=== PATIENT | male | born 1970 | race Caucasian/White ===

== ENCOUNTER 2018-09-25 11:59 | Emergency (ER) | payer BC ==
--- OUTSIDE RECORDS SUMMARY | 2018-09-25 12:17 | XMS REPORT | Continuity of Care Document ---
:1970 External Reference #:[id number] Author Name Pb Pal MD Address [facility] [place] [address] Care Team Providers Name Role Phone Pb Pal MD Care Team Information Neurophysiological Technician Unavailable Payers Type Date Identification Numbers Payment Provider Subscriber Policy Number: [id number] Of ASIF Vitaliy Sauceda II PayID: [id number] [address] [address] [place]il[place]USTÍN gupta [phone] Advance Directives Description No Information Available Problems Date Description Provider Status Onset: 12/25/2013 Ulcerative colitis Pb Pal MD Active Onset: 01/31/2015 Gastroesophageal reflux disease BHARATHI Kelly Active Onset: 01/31/2015 Essential hypertension BHARATHI Kelly Active Onset: 01/25/2017 Chronic ulcerative proctitis Pb Pal MD Active Family History Date Family Member(s) Problem(s) Comments Father Heart Disease Father Prostate Cancer Social History Type Date Description Comments Sex Unknown Tobacco Use Start: Unknown Patient has never smoked Smoking Status Reviewed: 07/13/18 Patient has never smoked Allergies, Adverse Reactions, Alerts Date Description Reaction Status Severity Comments 12/25/2013 Penicillin Active 12/25/2013 Contrast Dye Active 12/25/2013 [place] Active Medications Medication Date Status Form Strength Qnty SIG Indications Ordering Provider Methylphenidate 07/13/ Active Tablets 18mg 60tabs 1 tab by Pb Carroll HCL 2017 mouth tamela Pal MD Xeljanz 05/17/ Active Tablets 10mg 60tabs Take 1 Pb Carroll 2018 Tablet By Екатерина Pal Two MD Times A Day Pantoprazole 06/13/ Active Tablets DR 40mg 30tabs Take 1 Pb Carroll Sodium 2014 Tablet By Екатерина Pal MD Every Day Provigil 06/13/ Hx Tablets 200mg Daily Pb Carroll 2018 - Demarco 07/13/ 2017 Prednisone 02/24/ Hx Tablets 10mg QS 4 po q Shi 2017 - day x 7 L. 05/18/ d, 3 po [place] 2017 qday x7 , PA-C d, 2 po qd x 5d, 1 po q day x 7 d, then 1 po qother day x 6 days, then stop Prednisone 01/26/ Hx Tablets 10mg QS 3 po q Pb Carroll 2016 - day x 5 Demarco, 05/18/ days, 2016 then 2 po qday x 5 days, then 1 po q day x 5 days, then 1 po qother day x 6 days, then stop Uceris 06/16/ Hx Tablets ER 9mg 30tabs Take 1 Pb Carroll 2014 - 24HR Tablet By Demarco, 07/13/ Mouth 2017 Every Day Pantoprazole 03/17/ Hx Tablets DR 40mg 30tabs 1 by Pb Carroll Sodium 2014 - mouth Demarco, 01/24/ every day 2016 Uceris 03/17/ Hx Tablets ER 9mg 30tabs 1 by Pb Carroll 2014 - 24HR mouth Demarco, 01/24/ every day 2016 Lialda 01/09/ Hx Tablets DR 1.2gm 120tab Take 2 Pb Carroll 2014 - s Tablets Demarco, 01/24/ By Mouth 2016 Twice A Day Nexium 12/30/ Hx Capsules 40mg 30caps Take One Pb Carroll 2013 - DR Destiny Pal, 01/24/ By Mouth 2016 Every Day Lialda 12/25/ Hx Tablets DR 1.2gm 120tab 2 by Pb Carroll 2013 - s mouth Demarco, 01/24/ twice a 2016 day Proctofoam 12/25/ Hx Foam 1% 15gm apply Michelle Wynne 2013 - inside [place], 01/24/ rectum MEDICARE CONTACT SPECIALIST-C 2017 once a day x 14 days then every other day x 8 days Nexium 04/03/ Hx Capsules 40mg 30caps one po q Pb Carroll 2011 - DR keri Pal, 01/24/ 2016 Zoloft 00/ Hx Tablets 50mg Unknown 0000 - 2016 Lialda 00/ Hx Tablets DR 1.2gm Take 2 Unknown 0000 - Tablets 01/24/ By Mouth 2017 Every Day Atenolol / Hx Tablets 25mg Take 1 Unknown 0000 - Tablet By 01/24/ Mouth 2017 Every Day Lyrica / Hx Unknown 0000 - 2016 Immunizations Description No Information Available Vital Signs Date Vital Result Comment 05/04/2018 12:58pm Height 69 inches 5'9" Weight 173.00 lb BP Systolic 148 mmHg BP Diastolic 82 mmHg Heart Rate 88 /min BMI (Body Mass Index) 25.5 kg/m2 01/11/2018 3:17pm Height 71 inches 5'11" Weight 176.00 lb BP Systolic 130 mmHg BP Diastolic 91 mmHg Heart Rate 88 /min BMI (Body Mass Index) 24.5 kg/m2 05/18/2017 11:50am Height 71 inches 5'11" Weight 181.00 lb BP Systolic 122 mmHg BP Diastolic 70 mmHg Heart Rate 72 /min BMI (Body Mass Index) 25.2 kg/m2 01/25/2017 3:48pm Height 71 inches 5'11" Weight 178.00 lb BP Systolic 124 mmHg BP Diastolic 84 mmHg Heart Rate 84 /min BMI (Body Mass Index) 24.8 kg/m2 01/31/2015 12:49pm Height 71 inches 5'11" Weight 190.00 lb BP Systolic 118 mmHg BP Diastolic 62 mmHg Heart Rate 78 /min BMI (Body Mass Index) 26.5 kg/m2 12/25/2013 3:04pm Height 71 inches 5'11" Weight 181.00 lb BP Systolic 100 mmHg BP Diastolic 80 mmHg Heart Rate 70 /min BMI (Body Mass Index) 25.2 kg/m2 Results Test Date Facility Test Result H/L Range Note CBC W/Auto 05/17/2018 [facility] Blood 7.9 3/UL 4.8-10.8 Differential [address] Count Ser (!) [place] [address] Auto CNT [phone] RBC Red Blood Count 5.35 X106/UL 4.20-6.20 Hemoglobin Blood 14.6 g/dL 12.0-18.0 Hematocrit 48.0 % 35-52 MCV (Corpuscular Volume) 89.8 FL 79-97 MCH (Corpuscular Hemoglobin) 27.3 pg 27-31 MCHC (Corpuscular Hemog Conc) 30.4 g/dL Low 32.0-36.0 RDW 13.4 % 10.5-15.0 Platelet Count Blood Auto CNT 321 X103/UL 150-450 MPV 7.0 FL Low 7.4-10.4 Lymph% 20.5 % 20.0-45.0 [place]% 6.8 % 1.0-9.0 Neutrophil % 72.7 % 38.0-83.0 Absolute Lymphocytes 1.6 X103/UL 1.0-4.8 Absolute Monocytes 0.5 X103/UL 0.0-0.8 Absolute Neutrophils 5.7 X103/UL 1.5-7.7 Liver 05/17/2018 [facility] Albumin 4.6 g/dL 3.5-5.[address] Serum/Plasma(!) Panel(!) [place] [address] [phone] Alkaline Phosphatase(!) 73 U/L 39-117 Bilirubin Direct Mass/Vol(!) 0.2 mg/dL 0.0-0.6 Bilirubin Total Mass/Vol 0.7 mg/dL 0.2-1.3 Ast - Sgot 23 U/L 5-34 Alt - SGPT 33 U/L 10-40 Total Protein 6.9 g/dL 6.2-8.1 Hepatitis B Emre AB Titer 05/17/2018 [facility] Hepatitis B Surface AB Immune Immune 1 Hep B Surf AB Level > 1000.00 mIU/mL >12 Laboratory test 05/17/2018 [facility] Hepatitis B Surface Nonreactive Nonreactive 2 finding Ag Hepatitis B Core AB Total Negative Negative 3 Hepatitis C Antibody Nonreactive Nonreactive 4 Laboratory test finding 05/18/2017 [facility] CMV By PCR Undetected IU/mL N Undetected 5, 6 Hepatitis B Surface Ag Nonreactive N Nonreactive 7 CBC W/Auto 05/18/2017 [facility] 5.8 3/UL 4.8- 10.8 Differential(!) [address] [place] [address] Count Ser [phone] Auto CNT RBC Red Blood Count 4.84 X106/UL 4.20-6.20 Hemoglobin Blood 14.0 g/dL 12.0-18.0 Hematocrit 44.7 % 35-52 MCV (Corpuscular Volume) 92.2 FL 79-97 MCH (Corpuscular Hemoglobin) 28.9 pg 27-31 MCHC (Corpuscular Hemog Conc) 31.4 g/dL Low 32.0-36.0 RDW 15.8 % High 10.5-15.0 Platelet Count Blood Auto CNT 268 X103/UL 150-450 MPV 7.2 FL Low 7.4-10.4 Lymph% 31.6 % 20.0-45.0 Clarion% 8.9 % 1.0-9.0 Neutrophil % 59.5 % 38.0-83.0 Absolute Lymphocytes 1.8 X103/UL 1.0-4.8 Absolute Monocytes 0.5 X103/UL 0.0-0.8 Absolute Neutrophils 3.5 X103/UL 1.5-7.7 CMP(!) 05/18/2017 [facility] Sodium(!) 137 mEq/L 134- 149 [address] [place] [address] [phone] Potassium(!) 4.3 mEq/L 3.6-5.5 Chloride Serum/Plasma(!) 104 mEq/L 94-112 Carbon Dioxide Ser/Plasm(!) 29 mEq/L 21-33 BUN - Urea Nitrogen(!) 10 mg/dL 6-24 Calcium Ser/Plasma Mass/Vol(!) 10.1 mg/dL 8.6-10.2 Creatinine Serum Mass/Vol(!) 0.9 mg/dL 0.5-1.4 Glucose Serum(!) 99 mg/dL 70-105 Uric Acid Ser/Plas Mass/Vol(!) 4.1 mg/dL 2.6-7.2 BUN/Creatinine Ratio(!) 11.1 RATIO 8.0-36 Albumin Serum/Plasma(!) 4.4 g/dL 3.5-5.2 Alkaline Phosphatase(!) 61 U/L 39-117 Bilirubin Total Mass/Vol 0.7 mg/dL 0.2-1.3 Ast - Sgot 22 U/L 5-34 Alt - SGPT 31 U/L 10-40 Protein Total 6.6 g/dL 6.2-8.1 Laboratory test finding 03/17/2015 [facility] Surgical Interface SEE RESULT BELOW 8 Order Laboratory test finding 03/17/2015 [facility] Clotest SEE RESULT BELOW 9 1 [id number] 2 [id number] 3 Test Performed by: [facility] DN2K [facility] [address] [place] [address] 4 [id number] 5 [id number] 6 Result in log IU/mL is Undetected. ADDITIONAL INFORMATION The quantification range of this assay is 137 to 9,100,000 IU/mL (2.14 log to 6.96 log IU/mL) with a limit of detection at 91 IU/mL (1.96 log IU/mL). Testing was performed by the TABITHA AmpliPrep/TABITHA TaqMan CMV Test ([employer] Test Performed by: [facility] - [address] [address] 7 [id number] SEE RESULT BELOW Name: VITALIY SAUCEDA II : [address]: Pb Pal MD Acct: [id number] Unit: [id number] AGE: 44 Location: ENDO Re03/17/15 SEX: M Status: REG REF SPEC: [id number] VANIA: 03/17/15- SUBM DR: Pb Pal MD REQ: [id number] RECD: 03/17/15-1212 STATUS: JADEN BROOKS DR: Ramu Mcgarry MD _ ORDERED: LEVEL IV FINAL DIAGNOSIS Stomach, biopsy: -- Hyperplastic fundic gland polyp. CLINICAL HISTORY No additional information provided POST-OPERATIVE DIAGNOSIS Esophagus - at 41 cm. small hiatal hernia; stomach - polyp, biopsied; duodenum - normal GROSS DESCRIPTION The specimen is received in formalin labeled, Biopsy Gastric Polyp, and consists of a 0.4 x 0.4 x 0.2 cm jensen-pink irregular soft tissue fragment, which is submitted entirely in one cassette. Signed (signature on file) Paul Bueno MD 1150 END OF REPORT * ML=Testing performed at Main Lab DEPARTMENT OF PATHOLOGY, [address] [place] [address] Paul Bueno M.D. Director [facility] # [id number] SEE RESULT BELOW Name: VITALIY SAUCEDA II : [address]: Pb Pal MD Acct: [id number] Unit: [id number] AGE: 44 Location: ENDO Re03/17/15 SEX: M Status: REG REF SPEC: [id number] VANIA: 03/17/15- SUBM DR: Pb Pal MD REQ: [id number] RECD: 03/17/15-2 STATUS: JADEN BROOKS DR: Ramu Mcgarry MD _ ORDERED: LEVEL IV FINAL DIAGNOSIS Stomach, biopsy: -- Hyperplastic fundic gland polyp. CLINICAL HISTORY No additional information provided POST-OPERATIVE DIAGNOSIS Esophagus - at 41 cm. small hiatal hernia; stomach - polyp, biopsied; duodenum - normal GROSS DESCRIPTION The specimen is received in formalin labeled, Biopsy Gastric Polyp, and consists of a 0.4 x 0.4 x 0.2 cm jensen-pink irregular soft tissue fragment, which is submitted entirely in one cassette. Signed (signature on file) Paul Bueno MD 1150 END OF REPORT * ML=Testing performed at Main Lab DEPARTMENT OF PATHOLOGY, [address] [place] [address] Paul Bueno M.D. Director [facility] # [id number] SEE RESULT BELOW Name: VITALIY SAUCEDA II : [address]: Pb Pal MD Acct: [id number] Unit: [id number] AGE: 44 Location: ENDO Re03/17/15 SEX: M Status: REG REF SPEC: [id number] VANIA: 03/17/15- SUBM DR: Pb Pal MD REQ: [id number] RECD: 03/17/15 STATUS: JADEN BROOKS DR: Ramu Mcgarry MD _ ORDERED: LEVEL IV FINAL DIAGNOSIS Stomach, biopsy: -- Hyperplastic fundic gland polyp. CLINICAL HISTORY No additional information provided POST-OPERATIVE DIAGNOSIS Esophagus - at 41 cm. small hiatal hernia; stomach - polyp, biopsied; duodenum - normal GROSS DESCRIPTION The specimen is received in formalin labeled, Biopsy Gastric Polyp, and consists of a 0.4 x 0.4 x 0.2 cm jensen-pink irregular soft tissue fragment, which is submitted entirely in one cassette. Signed (signature on file) Paul Bueno MD 1150 END OF REPORT * ML=Testing performed at Main Lab DEPARTMENT OF PATHOLOGY, [address] [place] [address] Paul Bueno M.D. Director [facility] # [id number] SEE RESULT BELOW Name: VITALIY SAUCEDA II : [address]: Pb Pal MD Acct: [id number] Unit: [id number] AGE: 44 Location: ENDO Re03/17/15 SEX: M Status: REG REF SPEC: [id number] VANIA: 03/17/15- [facility] DR: Pb Pal MD REQ: [id number] RECD: 03/17/15-1212 STATUS: JADEN BROOKS DR: Ramu Mcgarry MD _ ORDERED: LEVEL IV FINAL DIAGNOSIS Stomach, biopsy: -- Hyperplastic fundic gland polyp. CLINICAL HISTORY No additional information provided POST-OPERATIVE DIAGNOSIS Esophagus - at 41 cm. small hiatal hernia; stomach - polyp, biopsied; duodenum - normal GROSS DESCRIPTION The specimen is received in formalin labeled, Biopsy Gastric Polyp, and consists of a 0.4 x 0.4 x 0.2 cm jensen-pink irregular soft tissue fragment, which is submitted entirely in one cassette. Signed (signature on file) Paul Bueno MD 1150 END OF REPORT * ML=Testing performed at Main Lab DEPARTMENT OF PATHOLOGY, [address] [place] [address] Paul Bueno M.D. Director [facility] # [id number] SEE RESULT BELOW Name: VITALIY SAUCEDA II : [address]: Pb Pla MD Acct: [id number] Unit: [id number] AGE: 44 Location: ENDO Re03/17/15 SEX: M Status: REG REF SPEC: [id number] VANIA: 03/17/15- SUBM DR: Pb Pal MD REQ: [id number] RECD: 03/17/15-1212 STATUS: JADEN BROOKS DR: Ramu Mcgarry MD _ ORDERED: LEVEL IV FINAL DIAGNOSIS Stomach, biopsy: -- Hyperplastic fundic gland polyp. CLINICAL HISTORY No additional information provided POST-OPERATIVE DIAGNOSIS Esophagus - at 41 cm. small hiatal hernia; stomach - polyp, biopsied; duodenum - normal GROSS DESCRIPTION The specimen is received in formalin labeled, Biopsy Gastric Polyp, and consists of a 0.4 x 0.4 x 0.2 cm jensen-pink irregular soft tissue fragment, which is submitted entirely in one cassette. Signed (signature on file) Paul Bueno MD 1150 END OF REPORT * ML=Testing performed at Main Lab DEPARTMENT OF PATHOLOGY, [address] [place] [address] Paul Bueno M.D. Director [facility] # [id number] SEE RESULT BELOW Name: VITALIY SAUCEDA II : [address]: Pb Pal MD Acct: [id number] Unit: [id number] AGE: 44 Location: ENDO Re03/17/15 SEX: M Status: REG REF SPEC: [id number] VANIA: 03/17/15- SUBM DR: Pb Pal MD REQ: [id number] RECD: 03/17/15-1212 STATUS: JADEN BROOKS DR: Ramu Mcgarry MD _ ORDERED: LEVEL IV FINAL DIAGNOSIS Stomach, biopsy: -- Hyperplastic fundic gland polyp. CLINICAL HISTORY No additional information provided POST-OPERATIVE DIAGNOSIS Esophagus - at 41 cm. small hiatal hernia; stomach - polyp, biopsied; duodenum - normal GROSS DESCRIPTION The specimen is received in formalin labeled, Biopsy Gastric Polyp, and consists of a 0.4 x 0.4 x 0.2 cm jensen-pink irregular soft tissue fragment, which is submitted entirely in one cassette. Signed (signature on file) Paul Bueno MD 1150 END OF REPORT * ML=Testing performed at Main Lab DEPARTMENT OF PATHOLOGY, [address] [place] [address] Paul Bueno M.D. Director [facility] # [id number] SEE RESULT BELOW Name: VITALIY SAUCEDA II : [address]: Pb Pal MD Acct: [id number] Unit: [id number] AGE: 44 Location: ENDO Re03/17/15 SEX: M Status: REG REF SPEC: [id number] VANIA: 03/17/15- SUBM DR: Pb Pal MD REQ: [id number] RECD: 03/17/15-2 STATUS: JADEN BROOKS DR: Ramu Mcgarry MD _ ORDERED: LEVEL IV FINAL DIAGNOSIS Stomach, biopsy: -- Hyperplastic fundic gland polyp. CLINICAL HISTORY No additional information provided POST-OPERATIVE DIAGNOSIS Esophagus - at 41 cm. small hiatal hernia; stomach - polyp, biopsied; duodenum - normal GROSS DESCRIPTION The specimen is received in formalin labeled, Biopsy Gastric Polyp, and consists of a 0.4 x 0.4 x 0.2 cm jensen-pink irregular soft tissue fragment, which is submitted entirely in one cassette. Signed (signature on file) Paul Bueno MD 1150 END OF REPORT * ML=Testing performed at Main Lab DEPARTMENT OF PATHOLOGY, [address] [place] [address] Paul Bueno M.D. Director [facility] # [id number] SEE RESULT BELOW Name: VITALIY SAUCEDA II : [address]: Pb Pal MD Acct: [id number] Unit: [id number] AGE: 44 Location: ENDO Re03/17/15 SEX: M Status: REG REF SPEC: [id number] VANIA: 03/17/15- SUBM DR: Pb Pal MD REQ: [id number] RECD: 03/17/15 STATUS: JADEN BROOKS DR: Ramu Mcgarry MD _ ORDERED: LEVEL IV FINAL DIAGNOSIS Stomach, biopsy: -- Hyperplastic fundic gland polyp. CLINICAL HISTORY No additional information provided POST-OPERATIVE DIAGNOSIS Esophagus - at 41 cm. small hiatal hernia; stomach - polyp, biopsied; duodenum - normal GROSS DESCRIPTION The specimen is received in formalin labeled, Biopsy Gastric Polyp, and consists of a 0.4 x 0.4 x 0.2 cm jensen-pink irregular soft tissue fragment, which is submitted entirely in one cassette. Signed (signature on file) Paul Bueno MD 1150 END OF REPORT * ML=Testing performed at Main Lab DEPARTMENT OF PATHOLOGY, [address] [place] [address] Paul Bueno M.D. Director [facility] # [id number] SEE RESULT BELOW Name: VITALIY SAUCEDA II : [address]: Pb Pal MD Acct: [id number] Unit: [id number] AGE: 44 Location: ENDO Re03/17/15 SEX: M Status: REG REF SPEC: [id number] VANIA: 03/17/15- SUBM DR: Pb Pal MD REQ: [id number] RECD: 03/17/15-1212 STATUS: JADEN BROOKS DR: Ramu Mcgarry MD _ ORDERED: LEVEL IV FINAL DIAGNOSIS Stomach, biopsy: -- Hyperplastic fundic gland polyp. CLINICAL HISTORY No additional information provided POST-OPERATIVE DIAGNOSIS Esophagus - at 41 cm. small hiatal hernia; stomach - polyp, biopsied; duodenum - normal GROSS DESCRIPTION The specimen is received in formalin labeled, Biopsy Gastric Polyp, and consists of a 0.4 x 0.4 x 0.2 cm jensen-pink irregular soft tissue fragment, which is submitted entirely in one cassette. Signed (signature on file) Paul Bueno MD 1150 END OF REPORT * ML=Testing performed at Main Lab DEPARTMENT OF PATHOLOGY, [address] [place] [address] Paul Bueno M.D. Director [facility] # [id number] SEE RESULT BELOW Name: VITALIY SAUCEDA II : [address]: Pb Pal MD Acct: [id number] Unit: [id number] AGE: 44 Location: ENDO Re03/17/15 SEX: M Status: REG REF SPEC: [id number] VANIA: 03/17/15- SUBM DR: Pb Pal MD REQ: [id number] RECD: 03/17/15-1212 STATUS: JADEN BROOKS DR: Ramu Mcgarry MD _ ORDERED: LEVEL IV FINAL DIAGNOSIS Stomach, biopsy: -- Hyperplastic fundic gland polyp. CLINICAL HISTORY No additional information provided POST-OPERATIVE DIAGNOSIS Esophagus - at 41 cm. small hiatal hernia; stomach - polyp, biopsied; duodenum - normal GROSS DESCRIPTION The specimen is received in formalin labeled, Biopsy Gastric Polyp, and consists of a 0.4 x 0.4 x 0.2 cm jensen-pink irregular soft tissue fragment, which is submitted entirely in one cassette. Signed (signature on file) Paul Bueno MD 1150 END OF REPORT * ML=Testing performed at Main Lab DEPARTMENT OF PATHOLOGY, [address] [place] [address] Paul Bueno M.D. Director [facility] # [id number] SEE RESULT BELOW Name: VITALIY SAUCEDA II : [address]: Pb Pal MD Acct: [id number] Unit: [id number] AGE: 44 Location: ENDO Re03/17/15 SEX: M Status: REG REF SPEC: [id number] VANIA: 03/17/15- SUBM DR: Pb Pal MD REQ: [id number] RECD: 03/17/15-1212 STATUS: JADEN BROOKS DR: Ramu Mcgarry MD _ ORDERED: LEVEL IV FINAL DIAGNOSIS Stomach, biopsy: -- Hyperplastic fundic gland polyp. CLINICAL HISTORY No additional information provided POST-OPERATIVE DIAGNOSIS Esophagus - at 41 cm. small hiatal hernia; stomach - polyp, biopsied; duodenum - normal GROSS DESCRIPTION The specimen is received in formalin labeled, Biopsy Gastric Polyp, and consists of a 0.4 x 0.4 x 0.2 cm jensen-pink irregular soft tissue fragment, which is submitted entirely in one cassette. Signed (signature on file) Paul Bueno MD 1150 END OF REPORT * ML=Testing performed at Main Lab DEPARTMENT OF PATHOLOGY, [address] [place] [address] Paul Bueno M.D. Director [facility] # [id number] SEE RESULT BELOW Name: VITALIY SAUCEDA II : [address]: Pb Pal MD Acct: [id number] Unit: [id number] AGE: 44 Location: ENDO Re03/17/15 SEX: M Status: REG REF SPEC: [id number] VANIA: 03/17/15-1133 [facility] DR: Pb Pal MD REQ: [id number] RECD: 03/17/15 STATUS: NIDIA BROOKS DR: Ramu Mcgarry MD _ SOURCE: GAS ANTRUM SPDESC: ORDERED: Clotest Procedure Result Verified Site Clotest Final 03/18/15- 801 ML Clotest Negative * ML - MAIN LAB ([facility]) . END OF REPORT * ML=Testing performed at Main Lab DEPARTMENT OF PATHOLOGY, [address] [place] [address] Paul Bueno M.D. Director [facility] # [id number] SEE RESULT BELOW Name: VITALIY SAUCEDA II : [address]: Pb Pal MD Acct: [id number] Unit: [id number] AGE: 44 Location: ENDO Re03/17/15 SEX: M Status: REG REF SPEC: [id number] VANIA: 03/17/15-1134 [facility] DR: Pb Pal MD REQ: [id number] RECD: 03/17/15-1221 STATUS: COMP TODD DR: Ramu Mcgarry MD _ SOURCE: GAS ANTRUM SPDESC: ORDERED: Clotest Procedure Result Verified Site Clotest Final 03/18/15- 08 ML Clotest Negative * ML - MAIN LAB ([facility]) . END OF REPORT * ML=Testing performed at Main Lab DEPARTMENT OF PATHOLOGY, [address] [place] [address] Paul Bueno M.D. Director [facility] # [id number] SEE RESULT BELOW Name: VITALIY SAUCEDA II : [address]: Pb Pal MD Acct: [id number] Unit: [id number] AGE: 44 Location: ENDO Re03/17/15 SEX: M Status: REG REF SPEC: [id number] VANIA: 03/17/15-1134 [facility] DR: Pb Pal MD REQ: [id number] RECD: 03/17/15-1222 STATUS: COMP OTHR DR: Ramu Mcgarry MD _ SOURCE: GAS ANTRUM SPDESC: ORDERED: Clotest Procedure Result Verified Site Clotest Final 03/18/15- 801 ML Clotest Negative * ML - [facility] ([facility]) . END OF REPORT * ML=Testing performed at Main Lab DEPARTMENT OF PATHOLOGY, [address] [place] [address] Paul Bueno M.D. Director [facility] # [id number] SEE RESULT BELOW Name: VITALIY SAUCEDA II : [address]: Pb Pal MD Acct: [id number] Unit: [id number] AGE: 44 Location: ENDO Re03/17/15 SEX: M Status: REG REF SPEC: [id number] VANIA: 03/17/15-113 [facility] DR: Pb Pal MD REQ: [id number] RECD: 03/17/15-1221 STATUS: NIDIA BROOKS DR: Ramu Mcgarry MD _ SOURCE: GAS ANTRUM SPDES: ORDERED: Clotest Procedure Result Verified Site Clotest Final 03/18/15- 801 ML Clotest Negative * ML - MAIN LAB ([facility]) . END OF REPORT * ML=Testing performed at Main Lab DEPARTMENT OF PATHOLOGY, [address] [place] [address] Paul Bueno M.D. Director [facility] # [id number] SEE RESULT BELOW Name: VITALIY SAUCEDA II : [address]: Pb Pal MD Acct: [id number] Unit: [id number] AGE: 44 Location: ENDO Re03/17/15 SEX: M Status: REG REF SPEC: [id number] VANIA: 03/17/15-1134 [facility] DR: Pb Pal MD REQ: [id number] RECD: 03/17/15-1222 STATUS: NIDIA BROOKS DR: Ramu Mcgarry MD _ SOURCE: GAS ANTRUM SPDESC: ORDERED: Clotest Procedure Result Verified Site Clotest Final 03/18/15- 08 ML Clotest Negative * ML - [facility] ([facility]) . END OF REPORT * ML=Testing performed at Main Lab DEPARTMENT OF PATHOLOGY, [address] [place] [address] Paul Bueno M.D. Director [facility] # [id number] SEE RESULT BELOW Name: VITALIY SAUCEDA II : [address]: Pb Pal MD Acct: [id number] Unit: [id number] AGE: 44 Location: ENDO Re03/17/15 SEX: M Status: REG REF SPEC: [id number] VANIA: 03/17/15-1134 [facility] DR: Pb Pal MD REQ: [id number] RECD: 03/17/15 STATUS: NIDIA BROOKS DR: Ramu Mcgarry MD _ SOURCE: GAS ANTRUM SPDESC: ORDERED: Clotest Procedure Result Verified Site Clotest Final 03/18/15- 801 ML Clotest Negative * ML - MAIN LAB ([facility]) . END OF REPORT * ML=Testing performed at Main Lab DEPARTMENT OF PATHOLOGY, [address] [place] [address] Paul Bueno M.D. Director [facility] # [id number] SEE RESULT BELOW Name: VITALIY SAUCEDA II : [address]: Pb Pal MD Acct: [id number] Unit: [id number] AGE: 44 Location: ENDO Re03/17/15 SEX: M Status: REG REF SPEC: [id number] VANIA: 03/17/15-1134 [facility] DR: Pb Pal MD REQ: [id number] RECD: 03/17/15-1222 STATUS: NIDIA BROOKS DR: Ramu Mcgarry MD _ SOURCE: GAS ANTRUM SPDESC: ORDERED: Clotest Procedure Result Verified Site Clotest Final 03/18/15- 08 ML Clotest Negative * ML - MAIN LAB ([facility]) . END OF REPORT * ML=Testing performed at Main Lab DEPARTMENT OF PATHOLOGY, [address] [place] [address] Paul Bueno M.D. Director [facility] # [id number] Procedures Date Code Description Status 03/17/2015 36800 EGD+Biopsy Single Or Multiple Completed 10/04/2008 [address] EGD+Biopsy Single Or Multiple Completed Encounters Type Date Location Provider Dx Diagnosis Office Visit 05/04/2018 Amada Carroll K51.218 Ulcerative 1:00p [facility] (chronic) proctitis with other complication K51.20 Ulcerative (chronic) proctitis without complications Office 01/11/2018 Amada Carroll K51.20 Ulcerative Visit 3:30p [facility] (chronic) proctitis without complications K51.211 Ulcerative (chronic) proctitis with rectal bleeding N62 Hypertrophy of breast Z79.899 Other [facility] (current) drug therapy Office Visit 05/18/2017 Amada Carroll K51.211 Ulcerative 11:45a [facility] (chronic) proctitis with rectal bleeding Office Visit 01/25/2017 Amada Carroll K51.211 Ulcerative 3:45p [facility] (chronic) proctitis with rectal bleeding Office Visit 03/26/2015 Amada Carroll 556.9 Ulcerative 8:00a [facility] Colitis Unspec 530.81 Esophageal Reflux Office Visit 01/31/2015 [facility] Wynne 556.9 Ulcerative 12:45p [facility] Colitis Unspec 530.81 Esophageal Reflux Office Visit 12/25/2013 Amada Carroll 556.9 Ulcerative 3:00p [facility] Colitis Unspec Plan of Treatment 07/13/2018 - Pb Pal MDK51.20 Ulcerative (chronic) proctitis without complicationsComments:he is doing pretty well at this time. We are going to stop the Concerta. We will decrease hisxeljanz to 1 per day. He will call me back in 1 week with an update
[2018-09-25] MEDS ORDERED: Tetan/Diph/Pertus SYR(Tdap)* 0.5 ML SYR(BOOSTRIX) use SYR IM ONE (13:29)
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
[2018-09-25 16:23] VITALS: BP 149/91
== END 2018-09-25 16:22 | disposition home or self-care (01) ==
LOC: ED 11:59
DX: S09.90XA Unspecified injury of head, initial encounter (principal); S00.83XA Contusion of other part of head, initial encounter; S50.819A Abrasion of unspecified forearm, initial encounter; W01.198A Fall on same level from slipping, tripping and stumbling with subsequent striking against other object, initial encounter; Y92.9 Unspecified place or not applicable; F07.81 Postconcussional syndrome; Z88.0 Allergy status to penicillin; Z91.040 Latex allergy status
CPT/HCPCS: 70450; 70486; 90471; 90715; 99282

== ENCOUNTER 2019-04-15 06:54 | Emergency (ER) | payer BC ==
[2019-04-15] MEDS ORDERED: NS 0.9% 1000 ML** 1,000 ML IV ONE ×2 (07:29→08:53)
[2019-04-15 07:39] LABS: ABS Eosinophils 0.1 10^3/ul (0-0.6); ABS Lymphocytes 2.3 10^3/ul (1.0-4.8); ABS Monocytes 0.7 10^3/ul (0-0.8); ABS Neutrophils 2.8 10^3/ul (1.5-7.7); Eosinophil % 1.6 %; Hematocrit 41 % (42-52); Hemoglobin 13.6 g/dL (14.0-18.0); Lymphocyte % 38.6 %; Mean Corpuscular HGB Conc 33 g/dL (31-36); Mean Corpuscular Hemoglobin 29 pg (27-31); Mean Corpuscular Volume 89 fL (80-94); Mean Platelet Volume 7.8 fL (7.4-10.4); Nucleated Red Blood Cells % 0.1; Platelet Count 201 10^3/uL (150-450); Red Blood Count 4.62 10^6 /uL (4.18-5.48); Red Cell Distribution Width 13 % (10-15); White Blood Count 5.9 10^3/uL (3.5-10.8)
[2019-04-15] MEDS: Ketorolac INJ* 30 MG/ML 1 ML VIAL IV ONE ×2 (07:50→07:57)
[2019-04-15 07:55] LABS: ALT 30 U/L (7-52); AST 33 U/L (13-39); Albumin 4.3 g/dL (3.2-5.2); Alkaline Phosphatase 61 U/L (34-104); Anion Gap 6 mmol/L (2-11); BUN/Creatinine Ratio 18.8 (8-20); Blood Urea Nitrogen 22 mg/dL (6-24); C Reactive Protein < 1.00 mg/L (<8.01); CO2 Carbon Dioxide 28 mmol/L (22-32); Calcium 9.1 mg/dL (8.6-10.3); Chloride 102 mmol/L (101-111); EGFR African American 80.2 (>60); EGFR Non-African American 66.3 (>60); Globulin 2.1 g/dL (2-4); Glucose 100 mg/dL (70-100); Potassium 3.7 mmol/L (3.5-5.0); Sodium 136 mmol/L (135-145); Total Protein 6.4 g/dL (6.4-8.9)
[2019-04-15] MEDS ORDERED: Morphine 4 MG/ML VIAL (1 ml) 4 MG/ML VIAL IV ONE ×2 (07:55→08:53)
[2019-04-15] MEDS ORDERED: Ondansetron INJ* 2 MG/ML VIAL IV ONE (07:56)
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
[2019-04-15 08:34] LABS: Urine Appearance Clear; Urine Bacteria Absent (Absent); Urine Bilirubin Negative (Negative); Urine Blood 2+ (Negative); Urine Color Straw; Urine Glucose Negative (Negative); Urine Ketones Negative (Negative); Urine Nitrite Negative (Negative); Urine Protein Negative (Negative); Urine Red Blood Cell Trace(0-2/hpf) (Absent); Urine Specific Gravity 1.008 (1.010-1.030); Urine Urobilinogen Negative (Negative); Urine White Blood Cell Absent (Absent)
[2019-04-15] MEDS ORDERED: HYDROcodone/ACETAMIN 5-325 MG* 1 TAB PO ONE (10:02)
[2019-04-15] MEDS ORDERED: Ketorolac INJ* 30 MG/ML 1 ML VIAL IV ONE (10:30)
[2019-04-15 10:40] VITALS: BP 131/86
== END 2019-04-15 10:39 | disposition home or self-care (01) ==
LOC: ED 06:54
DX: N20.0 Calculus of kidney (principal); R10.32 Left lower quadrant pain; Z87.442 Personal history of urinary calculi; Z79.899 Other long term (current) drug therapy; Z88.0 Allergy status to penicillin
CPT/HCPCS: 36415; 74176; 80053; 81003; 81015; 83605; 83690; 85025; 86140; 96361; 96374; 96375; 96376; 99283; J1885; J2270; J2405

== ENCOUNTER → 2019-04-23 13:09 | Day surgery (SDC) | payer BC ==
--- NOTE | 2019-04-20 09:30 | HP ---
CC: Dr. Celine Maurice; Dr. Pb Pal; Dr. Jaffe* ADMITTING HISTORY AND PHYSICAL: DATE OF ADMISSION: 04/23/19 ADMITTING DIAGNOSES: 1. Calculus, left proximal ureter. 2. Calculus, left kidney. PLANNED PROCEDURES: Shockwave lithotripsy of left ureteral and left renal calculi and left stent insertion. SURGEON: Dr. Jaffe. HISTORY OF PRESENT ILLNESS: Jaun Rudolph is a 48-year-old gentleman who had initially presented to the emergency room about 4 to 5 days ago because of left flank pain and nausea. He was noted to have an approximately 6 mm calculus in the proximal left ureter and an additional 6 mm calculus in the lower pole of the left kidney with mild left hydronephrosis. He had some increasing left flank pain yesterday, although it has improved today and had an evaluation including x-ray and ultrasound which revealed to me on the x-ray a persistent calculus in the vicinity of the left proximal ureter and on the ultrasound very mild left hydronephrosis. He will also be leaving the country in a couple of weeks and is now being brought in for shockwave lithotripsy of the ureteral as well as the renal calculi and temporary left stent insertion. PAST MEDICAL HISTORY: Significant for ulcerative colitis. PAST SURGICAL HISTORY: Significant for left shoulder surgery, tonsillectomy, and left eye surgery. MEDICATIONS ON ADMISSION: 1. Xeljanz 20 mg daily. 2. Pantoprazole 40 mg daily. 3. Focalin mg daily. ALLERGIES: PENICILLIN and intravenously-administered IODINATED CONTRAST (hives with both). FAMILY HISTORY: His mother has kidney stones and his father has a history of prostate cancer. REVIEW OF SYSTEMS: He is otherwise in excellent health. There is no history of diabetes mellitus or any other major systemic illness. He denies any chest pain or shortness of breath. PHYSICAL EXAMINATION GENERAL: Reveals a pleasant, middle-aged gentleman. VITAL SIGNS: Blood pressure is 104/70, pulse 81 per minute, temperature 97, oxygen saturation 97% on room air. LUNGS: Clear bilaterally. CARDIOVASCULAR: Regular rate and rhythm. S1, S2. ABDOMEN: Soft with mild left flank tenderness. IMPRESSION: A 48-year-old gentleman with left renal and left proximal ureteral calculus and persistent episodic left flank pain. PLAN: Plan is for shockwave lithotripsy of left renal and left ureteral calculus and left stent insertion. I have discussed the procedures in detail with Mr. Rudolph including possible risks of bleeding, infection, possible injury to the kidney, incomplete fragmentation, and possible injury to the ureter. Plan is left stent insertion and shockwave lithotripsy of left renal and ureteral calculi. [id number]/[facility] #: [id number] MTDD
[~2019-04-23 13:09] MED LIST: Acetaminophen IV 1GM/100ML * 1,000 MG/100 ML VIAL IVPB ONE; Acetaminophen IV 1GM/100ML * 100 ML ONE; Buffered Lidocaine 1% SYRIN* 1 ML/SYRINGE INTRADERM ONE; Furosemide IV* 10 MG/ML 2 ML VIAL (20 MG) ONE; Gentamicin ADULT (*) 120 MG in NS 0.9% 100 ML* 100 ML IVPB ONE; Iohexol 180 (CONTRAST) 10 ML SDV IV ONE; Ketorolac INJ* 30 MG/ML 1 ML VIAL IV PRN; Ketorolac INJ* 30 MG/ML 1 ML VIAL ONE; Lactated Ringers 1000 ML Bag* 1,000 ML IV SCH; Levofloxacin 500 MG IVPREMIX(* 500 MG/100 ML BAG IVPB ONE; Lidocaine 2% PF * 5 ML VIAL ONE; Midazolam* 1 MG/ML 2 ML VIAL (2 MG) ONE; Naloxone* 0.4 MG/ML 1 ML VIAL IV PRN; Ondansetron INJ* 2 MG/ML VIAL IV PRN; Ondansetron INJ* 2 MG/ML VIAL ONE; Tamsulosin CAP* 0.4 MG ONE; fentaNYL* 50 MCG/ML 2 ML VIAL (100 MCG VIAL) IV PRN; fentaNYL* 50 MCG/ML 2 ML VIAL (100 MCG VIAL) ONE; oxyCODONE/Acetamin 5/325 MG* TAB ONE
[2019-04-23 19:11] VITALS: BP 128/85
--- NOTE | 2019-04-23 23:38 | OP ---
CC: Dr. Celine Maurice; Dr. Pb Pal * DATE OF OPERATION: 04/23/19 - [facility] DATE OF : 68 SURGEON: Eduardo Jaffe MD ANESTHESIOLOGIST: Dr. Humphries. ANESTHESIA: General. PRE-OP DIAGNOSES: 1. Calculus, left ureter. 2. Calculus, left kidney. 3. Left hydronephrosis. POST-OP DIAGNOSES: 1. Calculus, left ureter. 2. Calculus, left kidney. 3. Left hydronephrosis. OPERATIVE PROCEDURE: 1. Shock wave lithotripsy of calculus, left ureter. 2. Shock wave lithotripsy of calculus, left kidney. 3. Cystoscopy, left retrograde and left stent insertion. INDICATIONS: Jaun Rudolph is a 48-year-old gentleman who had been evaluated for left flank pain secondary to calculus in the left proximal ureter with an additional calculus in the left kidney. COMPLICATIONS: None. STENT USED: 6-Fijian stent left ureter. OPERATIVE FINDING: Left ureteral and left renal calculi with mild left hydronephrosis. DESCRIPTION OF PROCEDURE: After induction of general anesthesia, the patient was placed on the lithotripsy table in the supine position. The calculus in the left proximal ureter was fairly faint and could not be very well visualized on the initial plain x-ray. However, on fluoroscopy, I was able to localize it and it measured approximately 5 to 6 mm in maximum dimension and was located in the proximal left ureter. Shock wave lithotripsy was commenced at a rate of 90 shocks per minute and 1200 shocks were delivered with good fragmentation observed. Next, attention was directed to the calculus in the lower pole of the left kidney which was also about 5 to 6 mm in dimension. This was targeted under fluoroscopic monitoring with shock wave at a rate of 90 shocks per minute. After the initial 300 shocks , there was a pause in the lithotripsy for several minutes in an effort to minimize any potential trauma to the kidney. Lithotripsy was then resumed and a total of 2000 shocks were administered to this calculus and good fragmentation was observed. Cystoscopy was performed. The urethra appeared normal. The prostate was mildly enlarged and the bladder was unremarkable. A guidewire was introduced into the left ureter. Retrograde pyelogram revealed mild left hydronephrosis. A 6 Fijian stent was introduced and positioned under fluoroscopic monitoring with good proximal and distal positioning obtained. The bladder was emptied. The patient tolerated the procedure satisfactorily and was transferred back to the recovery area in stable condition. My plan is to obtain a postoperative x- ray to make sure there is adequate fragmentation of both calculi prior to scheduling stent removal. [id number]/[facility] #: [id number] MTDD
== END | disposition home or self-care (01) ==
LOC: OR 13:09
PROVIDERS: ATTEND Urology
DX: N13.2 Hydronephrosis with renal and ureteral calculous obstruction (principal); F90.9 Attention-deficit hyperactivity disorder, unspecified type
CPT/HCPCS: 74018; A9270-GY; C1876; J1580; J1885; J1940; J1956; J2250; J2405; J3010

== ENCOUNTER 2019-05-03 08:06 | Emergency (ER) | payer BC ==
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
[2019-05-03 10:35] VITALS: BP 129/81
== END 2019-05-03 10:35 | disposition home or self-care (01) ==
LOC: ED 08:06
DX: S39.012A Strain of muscle, fascia and tendon of lower back, initial encounter (principal); R20.2 Paresthesia of skin; X58.XXXA Exposure to other specified factors, initial encounter; Y92.9 Unspecified place or not applicable; M51.36 Other intervertebral disc degeneration, lumbar region; K21.9 Gastro-esophageal reflux disease without esophagitis; Z79.899 Other long term (current) drug therapy; Z88.0 Allergy status to penicillin; Z91.041 Radiographic dye allergy status
CPT/HCPCS: 72131; 99282

== ENCOUNTER 2019-10-16 10:37 | Emergency (ER) | payer BC ==
--- OUTSIDE RECORDS SUMMARY | 2019-10-16 10:46 | XMS REPORT | Continuity of Care Document ---
:1970 External Reference #:[id number] Author Name Chang Keith NP (transmitted by agent of provider Peggy Bonilla) Address [address], [address] [place] [id number] Care Team Providers Name Role Phone Jaun Maguire MD - Surgery Care Team Information Senior Oracle Adf Developer [phone] Celine Maurice M.D. - Family Medicine Care Team Information Senior Oracle Adf Developer Problems Active Problems Provider Date Degeneration of lumbar intervertebral Boo Malhotra M.D.,FACP Onset: disc Note: LBP Ulcerative colitis Boo Malhotra M.D.,FACP Onset: 04/13/2018 Gynecomastia Boo Malhotra M.D.,FACP Onset: 04/13/2018 Note: iatrogenic Attention deficit hyperactivity Boo Malhotra M.D.,FACP Onset: 2017 disorder Testicular hypofunction Boo Malhotra M.D.,FACP Onset: 05/11/2018 Social History Type Date Description Comments Sex Unknown Tobacco Use Start: Unknown Never Smoked Cigarettes Smoking Status Reviewed: 10/11/19 Never Smoked Cigarettes ETOH Use 04/13/2018 Occasionally consumes beer Tobacco Use Start: Unknown Patient has never smoked Recreational Drug Use Denies Drug Use Exercise Type/Frequency Exercises regularly Allergies, Adverse Reactions, Alerts Active Allergies Reaction Severity Comments Date Penicillin 12/24/2016 Contrast Dye 12/24/2016 Remicade 04/13/2018 Medications Active Medications SIG Qnty Indications Ordering Date Provider Omeprazole 1 by mouth once 90caps Chang Keith NP 10/11/[address] [place] take 1 tab by mouth 30tabs Chang Keith NP 06/21/2019 36mg Tablets daily ER Sildenafil Citrate Take 1/2 Tablet By [id number] N52.9 Celine Maurice MD 2018 Mouth One Hour 100mg Tablets Before [place] Xeljanz bid Unknown 10mg Tablets Medications Administered in Office Medication SIG Qnty Indications Ordering Provider Date Depomedrol 80MG Raman Dominguez M.D. 10/15/2011 Injection Depomedrol 20MG Raman Dominguez M.D. 09/11/2010 Injection Depomedrol 20MG Raman Dominguez M.D. 04/28/2010 Injection Immunizations CPT Code Status Date Vaccine Lot # [id number] Given 04/04/2014 Tdap - Tetanus/Diptheria/Acellular Pertussis Vital Signs Date Vital Result Comment 10/11/2019 8:44am Height 71 inches 5'11" Weight 179.25 lb Heart Rate 76 /min BP Systolic 127 mmHg BP Diastolic 68 mmHg Body Temperature 97.9 F O2 % BldC Oximetry 96 % BMI (Body Mass Index) 25.0 kg/m2 06/21/2019 2:10pm Height 69.25 inches 5'9.25" Weight 170.00 lb Heart Rate 79 /min BP Systolic Sitting 117 mmHg BP Diastolic Sitting 76 mmHg O2 % BldC Oximetry 97 % BMI (Body Mass Index) 24.9 kg/m2 Results Test Acquired Date Facility Test Result H/L Range Note Comp Metabolic 10/10/2019 [facility] Sodium 135 mmol/L Normal 135-145 Panel [address] [place] [address] [phone] Potassium 4.1 mmol/L Normal 3.5-5.0 Chloride 101 mmol/L Normal 101-111 Co2 Carbon Dioxide 27 mmol/L Normal 22-32 Anion Gap 7 mmol/L Normal 2-11 Glucose 100 mg/dL Normal 70-100 Blood Urea Nitrogen 15 mg/dL Normal 6-24 Creatinine 0.94 mg/dL Normal 0.67-1.17 BUN/Creatinine Ratio 16.0 Normal 8-20 Calcium 9.6 mg/dL Normal 8.6-10.3 Total Protein 7.0 g/dL Normal 6.4-8.9 Albumin 4.7 g/dL Normal 3.2-5.2 Globulin 2.3 g/dL Normal 2-4 Albumin/Globulin Ratio 2.0 Normal 1-3 Total Bilirubin 0.80 mg/dL Normal 0.2-1.0 Alkaline Phosphatase 53 U/L Normal 34-104 Alt 51 U/L Normal 7-52 Ast 45 U/L High 13-39 Egfr Non- 85.3 >60 Egfr 103.2 >60 1 Lipid Profile 10/10/2019 [facility] Triglycerides 139 mg/dL 2 (Trig/Chol/HDL) [address] [place] [address] [phone] Cholesterol 256 mg/dL 3 HDL Cholesterol 70.5 mg/dL 4 LDL Cholesterol 158 mg/dL 5 Laboratory test 10/10/2019 [facility] PSA Screening 0.555 Normal 0-4.000 [address] ng/[place] [address] [phone] 1 Because ethnic data is not always readily available, this report includes an eGFR for both -Americans and non- Americans. The National Kidney Disease Education Program (NKDEP) does not endorse the use of the MDRD equation for patients that are not between the ages of 18 and 70, are , have extremes of body size, muscle mass, or nutritional status, or are non- or non-. According to the National Kidney Foundation, irrespective of diagnosis, the stage of the disease is based on the level of kidney function: Stage Description GFR(mL/min/1.73 m(2)) 1 Kidney damage with normal or decreased GFR 90 2 Kidney damage with mild decrease in GFR 60-89 3 Moderate decrease in GFR 30-59 4 Severe decrease in GFR 15-29 5 Kidney failure <15 (or dialysis) 2 Desirable: <150 Borderline High: 150-199 High: 200-499 Very High: >500 3 Desirable: <200 Borderline High: 200-239 High: >239 4 Low: <40 Desirable: 40-60 High: >60 5 Desirable: <100 Near Optimal: 100-129 Borderline High: 130-159 High: 160-189 Very High: >189 6 Serum levels of PSA measured using the [employer] Synthace DXI Hybritech immunoassay should not be interpreted as absolute evidence of the presence or absence of disease. The PSA value should be used in conjunction with other pertinent clinical diagnostic procedures. A PSA value in the range of 0.1 to 0.6 ng/ml is indeterminate if being used as an indicator of recurrent or residual disease. The values obtained with different assay methods or kits cannot be used interchangeably. Procedures Description No Information Available Medical Devices Description No Information Available Encounters Type Date Location Provider Dx Diagnosis Office Visit 06/21/2019 [facility] Internal Torie Randle F90.0 [facility]defct 2:[facility], predom inattentive type R00.2 Palpitations S49.91xA Unsp injury of right shoulder and upper arm, init encntr Assessments Date Code Description Provider 10/11/2019 Z00.00 Encounter for general adult medical Chang Keith NP examination without abnormal findings 10/11/2019 F90.0 Attention-deficit hyperactivity disorder, Chang Keith NP predominantly inat 10/11/2019 M25.512 Pain in left shoulder Chang Keith NP 06/21/2019 F90.0 Attention-deficit hyperactivity disorder, Torie Randle MD predominantly inat 06/21/2019 R00.2 Palpitations Torie Randle MD 06/21/2019 S49.91xA Unspecified injury of right shoulder and Torie Randle MD upper arm, initial encounter Plan of Treatment Future Appointment(s):04/11/2020 8:40 am - Celine Maurice MD at [facility] Internal Medicine - [facility]10/11/2019 - Chang Keith NPZ00.00 Encounter for general adult medical examination without abnormal findingsComments:VACCINES:Flu shot every year in the fall.We do not have a record of your last tetanus vaccine. A booster is recommended every 10 years. SCREENING:Cholesterol and fasting glucose yearly. This was done recently.HIV/STI testing offered yearly.Colon cancer screening: Recommended at age 50.F90.0 Attention-deficit hyperactivity disorder, predominantly inatFollow up:[address] Maurice or RZM25.512 Pain in left shoulderReferral:Sally William M.D., Surgery,Ortho Adult Recon Functional Status Description No Information Available Mental Status Description No Information Available Referrals Refer to Reason for Referral Status Appt Date Sally William M.D. Created [address] [place] [address] [phone]
[2019-10-16 10:54] VITALS: BP 130/83
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
[2019-10-16 11:16] LABS: Influenza A Molecular Negative (Negative); Influenza B Molecular Negative (Negative)
== END 2019-10-16 12:55 | disposition home or self-care (01) ==
LOC: UCEAST 10:37
DX: B34.9 Viral infection, unspecified (principal); J40 Bronchitis, not specified as acute or chronic; R51 Headache; R09.81 Nasal congestion; Z88.0 Allergy status to penicillin; Z91.018 Allergy to other foods; Z91.041 Radiographic dye allergy status; Z91.09 Other allergy status, other than to drugs and biological substances
CPT/HCPCS: 71046; 87651; 99212; G0463

== ENCOUNTER 2019-10-19 11:02 | Emergency (ER) | payer BC ==
[2019-10-19 15:05] VITALS: BP 125/75
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
[2019-10-19] MEDS ORDERED: Albuterol/Ipratropium NEB.SOL* Albuterol 2.5 MG/Ipratropium 0.5 MG 3 ML INH ONE (15:31)
== END 2019-10-19 16:10 | disposition home or self-care (01) ==
LOC: UCEAST 11:02
DX: J20.9 Acute bronchitis, unspecified (principal); K51.90 Ulcerative colitis, unspecified, without complications; Z88.0 Allergy status to penicillin; Z91.018 Allergy to other foods; Z91.09 Other allergy status, other than to drugs and biological substances; Z91.041 Radiographic dye allergy status
CPT/HCPCS: 71046; 99212; A9270-GY; G0463

== ENCOUNTER 2019-10-24 15:19 | Emergency (ER) | payer BC ==
--- OUTSIDE RECORDS SUMMARY | 2019-10-24 18:11 | XMS REPORT | Continuity of Care Document ---
:1970 External Reference #:[id number] Author Name Pb Pal MD (transmitted by agent of provider Eloisa Bonds) Address [address] [place] [id number] Care Team Providers Name Role Phone Boo Malhotra MD - Internal Care Team Information Selling Specialist [phone] Medicine Problems Active Problems Provider Date Ulcerative colitis Pb Pal MD Onset: 12/25/2013 Gastroesophageal reflux disease BHARATHI Kelly Onset: 01/31/2015 Essential hypertension BHARATHI Kelly Onset: 01/31/2015 Chronic ulcerative proctitis Pb Pal MD Onset: 01/25/2017 Social History Type Date Description Comments Sex Unknown Tobacco Use Start: Unknown Patient has never smoked Smoking Status Reviewed: 10/24/19 Patient has never smoked Allergies, Adverse Reactions, Alerts Active Allergies Reaction Severity Comments Date Penicillin 12/25/2013 Contrast Dye 12/25/2013 Luis Alfredo 12/25/2013 Medications Active Medications SIG Qnty Indications Ordering Date Provider Liadiane Take 2 Tablets 120tabs Pb D. 10/24/[address] By Mouth Twice MD Demarco A Day Methylphenidate HCL 1 tab by mouth 60tabs Pb D. 07/13/2018 18mg daily MD Demarco Tablets Xeljanz 1 by mouth 60tabs Pb D. 05/17/2018 10mg Tablets twice a day MD Demarco Omeprazole 1 by mouth Unknown 40mg Capsules DR every day History Medications Cortifoam Insert 1 45gm Pb D. 05/30/2019 - 10% Applicatorful MD Demarco 10/24/2019 Foam Rectally Every Day Cortifoam insert 1 45gm Pb D. 05/28/2019 - 10% applicatorful MD Demarco 05/29/2019 Foam rectally every day Cortifoam one applicatorful per 45gm Pb Carroll 05/24/2019 - 10% rectum every day MD Demarco 05/27/2019 Foam Colyte With by mouth as directed 4000ml K51.20 Pb Carroll 05/23/2019 - Flavor Packs MD Demarco 05/26/2019 240gm Solution Rec Immunizations Description No Information Available Vital Signs Date Vital Result Comment 10/24/2019 2:44pm Height 69 inches 5'9" Weight 180.00 lb BP Systolic 125 mmHg BP Diastolic 82 mmHg Heart Rate 90 /min BMI (Body Mass Index) 26.6 kg/m2 05/23/2019 9:26am Height 69 inches 5'9" Weight 174.00 lb BP Systolic 120 mmHg BP Diastolic 80 mmHg Heart Rate 87 /min BMI (Body Mass Index) 25.7 kg/m2 Results Description No Information Available Procedures Description No Information Available Medical Devices Description No Information Available Encounters Type Date Location Provider Dx Diagnosis Office Visit 05/23/2019 Gastroenterology Pb Carroll K51.20 [facility]cerative 9[facility] MD (chronic) proctitis without complications Assessments Date Code Description Provider 05/23/2019 K51.20 Ulcerative (chronic) proctitis without Pb Pal MD complications Plan of Treatment 05/23/2019 - Pb Pal MDK51.20 Ulcerative (chronic) proctitis without complicationsNew Medication:Colyte With Flavor Packs 240 gm - by mouth as directedComments:RISKS AND BENEFITS OF THE PROCEDURE WERE DISCUSSED WITH PATIENT. I had a long discussion with himregarding his current flare. We discussed using prednisone and uceris unfortunately he does not recall either. We are going to increase his Xeljanz temporarily to twice a day for 7-10 days and then back off to one per day. He will call me back with an update Functional Status Description No Information Available Mental Status Description No Information Available Referrals Description No Information Available
[2019-10-24 19:13] LABS: Influenza A Molecular Negative (Negative); Influenza B Molecular Negative (Negative)
[2019-10-24 19:26] VITALS: BP 140/92
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
== END 2019-10-24 20:42 | disposition home or self-care (01) ==
LOC: UCEAST 15:19
DX: B34.9 Viral infection, unspecified (principal); R53.83 Other fatigue; K51.90 Ulcerative colitis, unspecified, without complications; R05 Cough; Z91.041 Radiographic dye allergy status; Z91.09 Other allergy status, other than to drugs and biological substances; Z91.018 Allergy to other foods; Z88.0 Allergy status to penicillin; Z79.899 Other long term (current) drug therapy
CPT/HCPCS: 99212; G0463